=== PATIENT | female | born 2000 | race Caucasian/White ===

== ENCOUNTER 2024-03-26 19:40 | Emergency (ER) | payer OTHER, SELFPAY ==
[2024-03-26 19:46] VITALS: BP 122/84; PULSE 94; RESP 16; TEMP 36.9; O2SAT 99; BMI 23.3
[2024-03-26 20:12] LABS: Strep Grp A by PCR Rapid Negative (Negative)
[2024-03-26 20:44] LABS: Influenza A - CEPHEID Flu A NEGATIVE (NEGATIVE); Influenza B - CEPHEID Flu B NEGATIVE (NEGATIVE); Respiratory Syncytial Virus Negative (Negative)
[2024-03-26 20:47] LABS: COVID-19 CEPHEID 4-PLEX PCR Negative (Negative)
--- NOTE | 2024-03-26 21:02 | PC.NURSE ---
Pt states that she has been on her menstraul cycle 7 days, which is slightly abnormal for her. Bilateral lower extremity spots, that have spread to entire body. [facility] Doctor has some recommendations.
[2024-03-26 21:04] VITALS: BP 123/78; PULSE 88; RESP 18; TEMP 37.2; O2SAT 99
[2024-03-26 22:35] VITALS: BP 128/77; PULSE 77; RESP 16; O2SAT 95
--- NOTE | 2024-03-26 22:47 | ED_ITS ---
HPI - URI/Sore Throat <Elaina Harry MD - Last Filed: 03/28/24 03:14> General Chief Complaint: Upper Respiratory Symptoms Stated Complaint: flu like syptoms, blood clots in sinuses Time Seen by Provider: 03/26/24 22:16 Source: patient Mode of arrival: Ambulatory History of Present Illness HPI Narrative: 24-year-old female with no reported past medical history presents for evaluation. Patient states that for the last 3-4 days she has had nonspecific viral symptoms with body aches, fever up to 100 F at home. Yesterday patient noticed red dots over her body, especially in her legs. Her primary care doctor referred her to the ER for evaluation. Patient has also had nosebleeds at home Related Data Previous Rx's Medication Instructions Recorded dexamethasone 4 mg tablet 20 mg (5 x 4 mg) PO DAILY 4 days 03/27/24 #20 tabs clindamycin HCl 300 mg capsule 300 mg PO Q8H #30 caps 03/28/24 Allergies Allergy/AdvReac Type Severity Reaction Status Date / Time amoxicillin Allergy Verified 03/26/24 19:53 diphtheria, pertussis, Allergy Verified 03/26/24 19:52 tetanus vacc measles, mumps, and rubella Allergy Verified 03/26/24 19:52 vaccine Penicillins Allergy Verified 03/26/24 19:53 Patient History <Elaina Harry MD - Last Filed: 03/28/24 03:14> Social History Smoking Status: Former smoker Smoking Status: Former smoker Substance Use Type: does not use Exam <Elaina Harry MD - Last Filed: 03/28/24 03:14> Initial Vital Signs Initial Vital Signs: Vital Signs Temperature 98.4 F 03/26/24 19:46 Pulse Rate 94 H 03/26/24 19:46 Respiratory Rate 16 03/26/24 19:46 Blood Pressure 122/84 03/26/24 19:46 Pulse Oximetry 99 03/26/24 19:46 Oxygen Delivery Method Room Air 03/26/24 19:46 Const: Awake, alert, no acute distress, nontoxic appearing HEENT: No active bleeding, mild pharyngeal erythema Cardiac: regular rate, regular rhythm RESP: unlabored, clear bilaterally, no wheezing GI: Soft, nontender, nondistended, no rebound, no guarding MSK: Atraumatic, full range of motion, pulses equal Skin: Warm, Dry, intact, scattered petechiae over chest, abdomen, lower extremities Neuro: AO x3, CN II-XII grossly intact, moves all extremities <Zuleyka Cheek DO - Last Filed: 03/28/24 00:03> Initial Vital Signs Initial Vital Signs: Vital Signs Temperature 98.4 F 03/26/24 19:46 Pulse Rate 94 H 03/26/24 19:46 Respiratory Rate 16 03/26/24 19:46 Blood Pressure 122/84 03/26/24 19:46 Pulse Oximetry 99 03/26/24 19:46 Oxygen Delivery Method Room Air 03/26/24 19:46 Course <Elaina Harry MD - Last Filed: 03/28/24 03:14> Orders Ordered: Discontinued Medications Dexamethasone (Dexamethasone 10 Mg/Ml Vial) 20 mg PO NOW ONE Stop: 03/27/24 00:36 Last Admin: 03/27/24 00:46 Dose: 20 mg Documented By: Vital Signs Vital signs: Vital Signs - 8 hr 03/26/24 22:35 03/27/24 05:51 Temperature 98.2 F Pulse Rate 77 68 Respiratory Rate 16 14 Blood Pressure 128/77 110/62 Pulse Oximetry 95 Oxygen Delivery Method Room Air <Zuleyka Cheek DO - Last Filed: 03/28/24 00:03> Orders Ordered: Discontinued Medications Dexamethasone (Dexamethasone 10 Mg/Ml Vial) 20 mg PO NOW ONE Stop: 03/27/24 00:36 Last Admin: 03/27/24 00:46 Dose: 20 mg Documented By: Vital Signs Vital signs: Vital Signs - 8 hr 03/26/24 22:35 03/27/24 05:51 Temperature 98.2 F Pulse Rate 77 68 Respiratory Rate 16 14 Blood Pressure 128/77 110/62 Pulse Oximetry 95 Oxygen Delivery Method Room Air MDM - URI/Sore Throat <Elaina Harry MD - Last Filed: 03/28/24 03:14> Lab Data 03/26/24 23:10 03/26/24 23:10 Labs: Lab Results 03/26/24 03/26/24 03/26/24 Range/Units 19:57 23:10 23:30 WBC 8.5 (4.5-11.0) X10^3/uL RBC 4.45 (4.0-5.2) X10^6/uL Hgb 13.3 (12.0-16.0) g/dL Hct 38.4 (36-46) % MCV 86.3 (80-100) fL MCH 29.9 (26-34) PG MCHC 34.7 (30-36) % RDW 13.3 (11.6-14.8) % Plt Count 5 L* (150-400) X10^3/uL Neut % (Auto) Not Reportable Lymph % (Auto) Not Reportable [place] % (Auto) Not Reportable Eos % (Auto) Not Reportable Baso % (Auto) Not Reportable Lymph # (Auto) Not Reportable [place] # (Auto) Not Reportable Baso # (Auto) Not Reportable Total Counted 100 Seg Neutrophils % 20.0 L (38-70) % Band Neutrophils % 2.0 L (3-7) % Lymphocytes % (Manual) 61.0 H (25-45) % Atypical Lymphs % 9.0 H ( - 0) % Monocytes % (Manual) 6.0 (2-11) % Eosinophils % (Manual) 1.0 L (2-4) % Basophils % (Manual) 1.0 (0-1) % Neutrophils # (Manual) 1870 L (9220-5068) /uL Platelet Estimate Decreased on smear RBC Morphology Normal morphology ESR 19 (0-20) MM/HR Sodium 138 (137-145) mmol/L Potassium 3.8 (3.4-5.1) mmol/L Chloride 103 (98-107) mmol/L Carbon Dioxide 27 (22-32) mmol/L BUN 6 L (7-17) mg/dL Creatinine 0.62 (0.52-1.04) mg/dL Estimated GFR > 60 (>60) mL/min BUN/Creatinine Ratio 9.7 (6-22) Glucose 103 H (70-100) mg/dL Calcium 9.1 (8.4-10.2) mg/dL Total Bilirubin 0.7 (0.2-1.3) mg/dL AST 207 H (14-36) IU/L ALT 404 H (<35) IU/L Alkaline Phosphatase 197 H (38-126) U/L Lactate Dehydrogenase (120-246) U/L C-Reactive Protein 1.9 H (<1.0) mg/dL Total Protein 8.0 (6.3-8.2) g/dL Albumin 4.4 (3.5-5.0) g/dL Globulin 3.6 (1.7-4.1) g/dL Albumin/Globulin Ratio 1.2 (1.0-2.8) TSH 3.00 (0.47-4.68) uIU/mL Ur Bilirubin Confirm Negative (Negative) Urine RBC 0-1/hpf (0-5/HPF) Urine WBC None seen (0-5/HPF) Ur Squamous Epith Cells 0-1 /hpf (0-5/HPF) Urine Bacteria None seen (None) Ur Culture Indicated? Cult not indicated Vol Urine Centrifuged 10ml (spun) Urine Test Negative (Negative) SARS-CoV-2 (PCR) Negative (Negative) Influenza A (RT-PCR) Flu a negative (NEGATIVE) Influenza B (RT-PCR) Flu b negative (NEGATIVE) RSV (PCR) Negative (Negative) Group A Strep (PCR) Negative (Negative) Blood Type Antibody Screen 03/26/24 Range/Units 23:58 WBC (4.5-11.0) X10^3/uL RBC (4.0-5.2) X10^6/uL Hgb (12.0-16.0) g/dL Hct (36-46) % MCV (80-100) fL MCH (26-34) PG MCHC (30-36) % RDW (11.6-14.8) % Plt Count (150-400) X10^3/uL Neut % (Auto) Lymph % (Auto) [place] % (Auto) Eos % (Auto) Baso % (Auto) Lymph # (Auto) [place] # (Auto) Baso # (Auto) Total Counted Seg Neutrophils % (38-70) % Band Neutrophils % (3-7) % Lymphocytes % (Manual) (25-45) % Atypical Lymphs % ( - 0) % Monocytes % (Manual) (2-11) % Eosinophils % (Manual) (2-4) % Basophils % (Manual) (0-1) % Neutrophils # (Manual) (0732-3612) /uL Platelet Estimate RBC Morphology ESR (0-20) MM/HR Sodium (137-145) mmol/L Potassium (3.4-5.1) mmol/L Chloride (98-107) mmol/L Carbon Dioxide (22-32) mmol/L BUN (7-17) mg/dL Creatinine (0.52-1.04) mg/dL Estimated GFR (>60) mL/min BUN/Creatinine Ratio (6-22) Glucose (70-100) mg/dL Calcium (8.4-10.2) mg/dL Total Bilirubin (0.2-1.3) mg/dL AST (14-36) IU/L ALT (<35) IU/L Alkaline Phosphatase (38-126) U/L Lactate Dehydrogenase 466 H (120-246) U/L C-Reactive Protein (<1.0) mg/dL Total Protein (6.3-8.2) g/dL Albumin (3.5-5.0) g/dL Globulin (1.7-4.1) g/dL Albumin/Globulin Ratio (1.0-2.8) TSH (0.47-4.68) uIU/mL Ur Bilirubin Confirm (Negative) Urine RBC (0-5/HPF) Urine WBC (0-5/HPF) Ur Squamous Epith Cells (0-5/HPF) Urine Bacteria (None) Ur Culture Indicated? Vol Urine Centrifuged Urine Test (Negative) SARS-CoV-2 (PCR) (Negative) Influenza A (RT-PCR) (NEGATIVE) Influenza B (RT-PCR) (NEGATIVE) RSV (PCR) (Negative) Group A Strep (PCR) (Negative) Blood Type O Positive Antibody Screen Negative Urine Dip Bedside Urine Glucose Negative Bedside Urine Bilirubin - Negative Bedside Urine Ketone - Negative Urine Specific [place] 1.005 Bedside Urine Occult Blood +/- Bedside Urine pH 6.0 Bedside Urine Protein - Negative Bedside Urine Urobilinogen +/- 1mg Bedside Urine Nitrite - Negative Bedside Urine Leukocytes - Negative Esterase MDM Narrative Medical decision making narrative: Scattered petechiae over body. With nosebleeds this is concerning for thrombocytopenia. Laboratory work confirms platelet count of 5. Discussed case with Hematology at [facility], who recommended 20 mg of Decadron daily for 4 days. Agreed with transfusion of 1 unit of platelets. 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 Recommended close PCP follow up after discharge from the hospital. Patient received her platelets without incident. She states that she has an appointment later today with her PCP back on [facility]. Patient informed of all laboratory findings as well as Hematology recommendations. She was in agreement to continue steroids at this time. A print out of the patient's laboratory results given to the patient at time of discharge so that she may take them to her PCP's office. Dr. Cheek-culture positive for group C strep allergic to penicillins clindamycin sent to patient's pharmacy of [facility] [place] nursing staff to call patient <Zuleyka Cheek, - Last Filed: 03/28/24 00:03> Lab Data Labs: Lab Results 03/26/24 03/26/24 03/26/24 Range/Units 19:57 23:10 23:30 WBC 8.5 (4.5-11.0) X10^3/uL RBC 4.45 (4.0-5.2) X10^6/uL Hgb 13.3 (12.0-16.0) g/dL Hct 38.4 (36-46) % MCV 86.3 (80-100) fL MCH 29.9 (26-34) PG MCHC 34.7 (30-36) % RDW 13.3 (11.6-14.8) % Plt Count 5 L* (150-400) X10^3/uL Neut % (Auto) Not Reportable Lymph % (Auto) Not Reportable [place] % (Auto) Not Reportable Eos % (Auto) Not Reportable Baso % (Auto) Not Reportable Lymph # (Auto) Not Reportable [place] # (Auto) Not Reportable Baso # (Auto) Not Reportable Total Counted 100 Seg Neutrophils % 20.0 L (38-70) % Band Neutrophils % 2.0 L (3-7) % Lymphocytes % (Manual) 61.0 H (25-45) % Atypical Lymphs % 9.0 H ( - 0) % Monocytes % (Manual) 6.0 (2-11) % Eosinophils % (Manual) 1.0 L (2-4) % Basophils % (Manual) 1.0 (0-1) % Neutrophils # (Manual) 1870 L (7740-1970) /uL Platelet Estimate Decreased on smear RBC Morphology Normal morphology ESR 19 (0-20) MM/HR Sodium 138 (137-145) mmol/L Potassium 3.8 (3.4-5.1) mmol/L Chloride 103 (98-107) mmol/L Carbon Dioxide 27 (22-32) mmol/L BUN 6 L (7-17) mg/dL Creatinine 0.62 (0.52-1.04) mg/dL Estimated GFR > 60 (>60) mL/min BUN/Creatinine Ratio 9.7 (6-22) Glucose 103 H (70-100) mg/dL Calcium 9.1 (8.4-10.2) mg/dL Total Bilirubin 0.7 (0.2-1.3) mg/dL AST 207 H (14-36) IU/L ALT 404 H (<35) IU/L Alkaline Phosphatase 197 H (38-126) U/L Lactate Dehydrogenase (120-246) U/L C-Reactive Protein 1.9 H (<1.0) mg/dL Total Protein 8.0 (6.3-8.2) g/dL Albumin 4.4 (3.5-5.0) g/dL Globulin 3.6 (1.7-4.1) g/dL Albumin/Globulin Ratio 1.2 (1.0-2.8) TSH 3.00 (0.47-4.68) uIU/mL Ur Bilirubin Confirm Negative (Negative) Urine RBC 0-1/hpf (0-5/HPF) Urine WBC None seen (0-5/HPF) Ur Squamous Epith Cells 0-1 /hpf (0-5/HPF) Urine Bacteria None seen (None) Ur Culture Indicated? Cult not indicated Vol Urine Centrifuged 10ml (spun) Urine Test Negative (Negative) SARS-CoV-2 (PCR) Negative (Negative) Influenza A (RT-PCR) Flu a negative (NEGATIVE) Influenza B (RT-PCR) Flu b negative (NEGATIVE) RSV (PCR) Negative (Negative) Group A Strep (PCR) Negative (Negative) Blood Type Antibody Screen 03/26/24 Range/Units 23:58 WBC (4.5-11.0) X10^3/uL RBC (4.0-5.2) X10^6/uL Hgb (12.0-16.0) g/dL Hct (36-46) % MCV (80-100) fL MCH (26-34) PG MCHC (30-36) % RDW (11.6-14.8) % Plt Count (150-400) X10^3/uL Neut % (Auto) Lymph % (Auto) [place] % (Auto) Eos % (Auto) Baso % (Auto) Lymph # (Auto) [place] # (Auto) Baso # (Auto) Total Counted Seg Neutrophils % (38-70) % Band Neutrophils % (3-7) % Lymphocytes % (Manual) (25-45) % Atypical Lymphs % ( - 0) % Monocytes % (Manual) (2-11) % Eosinophils % (Manual) (2-4) % Basophils % (Manual) (0-1) % Neutrophils # (Manual) (1923-9523) /uL Platelet Estimate RBC Morphology ESR (0-20) MM/HR Sodium (137-145) mmol/L Potassium (3.4-5.1) mmol/L Chloride (98-107) mmol/L Carbon Dioxide (22-32) mmol/L BUN (7-17) mg/dL Creatinine (0.52-1.04) mg/dL Estimated GFR (>60) mL/min BUN/Creatinine Ratio (6-22) Glucose (70-100) mg/dL Calcium (8.4-10.2) mg/dL Total Bilirubin (0.2-1.3) mg/dL AST (14-36) IU/L ALT (<35) IU/L Alkaline Phosphatase (38-126) U/L Lactate Dehydrogenase 466 H (120-246) U/L C-Reactive Protein (<1.0) mg/dL Total Protein (6.3-8.2) g/dL Albumin (3.5-5.0) g/dL Globulin (1.7-4.1) g/dL Albumin/Globulin Ratio (1.0-2.8) TSH (0.47-4.68) uIU/mL Ur Bilirubin Confirm (Negative) Urine RBC (0-5/HPF) Urine WBC (0-5/HPF) Ur Squamous Epith Cells (0-5/HPF) Urine Bacteria (None) Ur Culture Indicated? Vol Urine Centrifuged Urine Test (Negative) SARS-CoV-2 (PCR) (Negative) Influenza A (RT-PCR) (NEGATIVE) Influenza B (RT-PCR) (NEGATIVE) RSV (PCR) (Negative) Group A Strep (PCR) (Negative) Blood Type O Positive Antibody Screen Negative Urine Dip Bedside Urine Glucose Negative Bedside Urine Bilirubin - Negative Bedside Urine Ketone - Negative Urine Specific [place] 1.005 Bedside Urine Occult Blood +/- Bedside Urine pH 6.0 Bedside Urine Protein - Negative Bedside Urine Urobilinogen +/- 1mg Bedside Urine Nitrite - Negative Bedside Urine Leukocytes - Negative Esterase MDM Narrative Medical decision making narrative: Scattered petechiae over body. With nosebleeds this is concerning for thrombocytopenia. Laboratory work confirms platelet count of 5. Discussed case with Hematology, who recommended 20 mg of Decadron daily for 4 days. Agreed with transfusion of 1 unit of platelets. 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 Dr. Cheek-culture positive for group C strep allergic to penicillins clindamycin sent to patient's pharmacy [facility] nursing staff to call patient Discharge Plan Departure Patient Disposition: Home Clinical Impression: Thrombocytopenia Instructions: DI for Immune Thrombocytopenic [place] Activity Restrictions/Additional Instructions: Your platelets today were 5000. A normal amount of platelets is around [id number]. After speaking with the underwriting sales representative it was likely that this is related to an immune response following a viral infection. They recommended 4 more days of high-dose steroids to help your body recover and make more platelets. Avoid contact sports. If you notice fever, yellowing of your skin and eyes, changes in mental status, or bleeding please return to the emergency department for repeat evaluation. Of note, your liver enzymes were mildly elevated today. The nurse care manager I spoke to believes that this is secondary to the virus and we will resolve with time. Make sure to follow up with your primary care doctor to make sure that your labs improved. Prescriptions: New dexamethasone 4 mg tablet 20 mg PO DAILY 4 Days Qty: 20 0RF clindamycin HCl 300 mg capsule 300 mg PO Q8H Qty: 30 0RF Referrals: Mesha Louie ND [Primary Care Provider] - Stand Alone Forms: Patient Portal/API
[2024-03-26 23:46] LABS: Alanine Aminotransferase 404 IU/L (<35); Albumin 4.4 g/dL (3.5-5.0); Albumin Globulin Ratio 1.2 (1.0-2.8); Alkaline Phosphatase 197 U/L (38-126); Aspartate Aminotransferase 207 IU/L (14-36); BUN Creatinine Ratio 9.7 (6-22); Bilirubin Total 0.7 mg/dL (0.2-1.3); Blood Urea Nitrogen 6 mg/dL (7-17); C-Reactive Protein Quant 1.9 mg/dL (<1.0); Calcium 9.1 mg/dL (8.4-10.2); Carbon Dioxide 27 mmol/L (22-32); Chloride 103 mmol/L (98-107); Estimated Glomerular Filt Rate > 60 mL/min (>60); Globulin 3.6 g/dL (1.7-4.1); Glucose 103 mg/dL (70-100); HEMOLYSIS < 15 (0-50); Potassium 3.8 mmol/L (3.4-5.1); Sodium 138 mmol/L (137-145)
[2024-03-27 00:13] LABS: Hematocrit 38.4 % (36-46); Hemoglobin 13.3 g/dL (12.0-16.0); Mean Corpuscular HGB Conc 34.7 % (30-36); Mean Corpuscular Hemoglobin 29.9 PG (26-34); Mean Corpuscular Volume 86.3 fL (80-100); Red Blood Cell Count 4.45 X10^6/uL (4.0-5.2); Red Cell Distribution Width 13.3 % (11.6-14.8); White Blood Cell Count 8.5 X10^3/uL (4.5-11.0)
[2024-03-27 00:14] LABS: Add Manual Diff / Slide Review YES
[2024-03-27 00:15] LABS: Platelet Count 5 X10^3/uL (150-400)
[2024-03-27 00:34] LABS: Ictotest Urine Negative (Negative); Pregnancy Test Urine Negative (Negative); RBC Urine 0-1/HPF (0-5/HPF); Urine Volume 10mL (spun)
[2024-03-27 00:35] LABS: Bacteria Urine None Seen; Culture Indicated Urine Cult Not Indicated; Squamous Epithelial Cell Urine 0-1 /HPF (0-5/HPF); WBC Urine None Seen (0-5/HPF)
[2024-03-27 00:40] LABS: Neutrophils Absolute Manual 1870 /uL (3000-5900); Platelet Estimate Decreased on smear; RBC Morphology Normal Morphology; Total Cells Counted 100
[2024-03-27 00:41] LABS: Erythrocyte Sedimentation Rate 19 MM/HR (0-20)
[2024-03-27] MEDS: DEXAMETHASONE 10 MG/ML VIAL 20 MG PO (00:46)
[2024-03-27 01:04] LABS: Lactate Dehydrogenase 466 U/L (120-246)
[2024-03-27 05:51] VITALS: BP 110/62; PULSE 68; RESP 14; TEMP 36.8
[2024-03-27 06:13] VITALS: BP 104/65; PULSE 85; RESP 18; TEMP 36.4; O2SAT 98
[2024-03-27 06:21] VITALS: BP 105/54; PULSE 75; RESP 18; TEMP 36.9; O2SAT 99
== END 2024-03-27 06:22 | disposition home or self-care (01) ==
PROVIDERS: Emergency Provider Emergency Medicine; PCP Naturopath
DX: D69.6 Thrombocytopenia, unspecified (principal); Z11.52 Encounter for screening for COVID-19
CPT/HCPCS: 0241U; 36430; 80053; 81003; 81015; 81025; 83615; 84443; 85007; 85025; 85651; 86140; 86850; 86900; 86901; 87070; 87077; 87147; 87651; 99284; J1100; P9035

== ENCOUNTER → 2024-04-04 12:12 | Outpatient (CLI) | payer OTHER, SELFPAY ==
[2024-04-04 19:47] LABS: Add Manual Diff / Slide Review NO; Basophils Absolute Auto 0 /uL (0-100); Basophils Percent Auto 0.9 % (0-2); Eosinophils Absolute Auto 100 /uL (0-450); Eosinophils Percent Auto 1.6 % (2-4); Hematocrit 39.8 % (36-46); Lymphocytes Absolute Auto 2900 /uL (1100-4500); Lymphocytes Percent Auto 49.9 % (25-40); Mean Corpuscular HGB Conc 35.1 % (30-36); Mean Corpuscular Hemoglobin 30.2 PG (26-34); Mean Corpuscular Volume 86.1 fL (80-100); Monocytes Absolute Auto 500 /uL (0-900); Monocytes Percent Auto 8.5 % (3-14); Neutrophils Absolute Auto 2300 /uL (1500-7000); Neutrophils Percent Auto 39.1 % (50-75); Red Blood Cell Count 4.62 X10^6/uL (4.0-5.2); Red Cell Distribution Width 12.9 % (11.6-14.8); White Blood Cell Count 5.8 X10^3/uL (4.5-11.0)
[2024-04-04 19:59] LABS: Platelet Count 5 X10^3/uL (150-400)
[2024-04-04 20:21] LABS: Platelet Estimate Decreased on smear; RBC Morphology Normal Morphology
[2024-04-04 20:46] LABS: Alanine Aminotransferase 113 IU/L (<35); Albumin 4.1 g/dL (3.5-5.0); Albumin Globulin Ratio 1.3 (1.0-2.8); Alkaline Phosphatase 104 U/L (38-126); Aspartate Aminotransferase 72 IU/L (14-36); BUN Creatinine Ratio 10.9 (6-22); Bilirubin Total 0.6 mg/dL (0.2-1.3); Blood Urea Nitrogen 11 mg/dL (7-17); C-Reactive Protein Quant < 0.5 mg/dL (<1.0); Carbon Dioxide 28 mmol/L (22-32); Chloride 103 mmol/L (98-107); Estimated Glomerular Filt Rate > 60 mL/min (>60); Gamma Glutamyl Transpeptidase 34 U/L (12-43); Globulin 3.1 g/dL (1.7-4.1); Glucose 79 mg/dL (70-100); HEMOLYSIS < 15 (0-50); Lactate Dehydrogenase 248 U/L (120-246); Potassium 3.9 mmol/L (3.4-5.1); Sodium 136 mmol/L (137-145); Total Protein 7.2 g/dL (6.3-8.2)
== END ==
PROVIDERS: PCP Naturopath; Visit Provider Naturopath
DX: D69.3 Immune thrombocytopenic purpura (principal); D72.820 Lymphocytosis (symptomatic); R74.8 Abnormal levels of other serum enzymes
CPT/HCPCS: 80053; 82977; 83615; 85025; 86060; 86140; 86644; 86645; 86664; 86665